=== PATIENT | male | born 1955 | race Caucasian/White ===

== ENCOUNTER 2016-10-02 16:53 | Emergency (ER) | payer OTHER ==
[2016-10-02] MEDS ORDERED: IOPAMIDOL 300 (61%) 100 ML VIAL IV ONE (16:54)
[2016-10-02] MEDS ORDERED: PANTOPRAZOLE SODIUM 40 MG VIAL IV ONE (17:45)
[2016-10-02] MEDS ORDERED: MORPHINE SULFATE 4 MG/ML SYRINGE ONE (17:46)
[2016-10-02] MEDS ORDERED: SODIUM CHLORIDE 0.9% 1,000 ML ONE (17:46)
[2016-10-02] MEDS ORDERED: ONDANSETRON 4 MG/2ML 2 ML VIAL ONE (17:46)
[2016-10-02 17:48] LABS: ABSOLUTE NEUTROPHIL COUNT 6.7 K/mm3 (1.8-7.7); BASO % 0.4 % (0.2-1.0); EOS % 0.1 % (0.9-2.9); HEMOGLOBIN 10.4 gm/l (14.0-18.0); IMM NEUT% 0.2 % (0-1); LYMPH % 12.6 % (15-45); MEAN CELL VOLUME 82.3 fl (80.0-94.0); MEAN CORPUSCULAR HEMOGLOBIN 26.7 pg (27.0-31.0); MEAN CORPUSCULAR HGB CONC 32.5 g/dl (33.0-37.0); MEAN PLATELET VOLUME 11.4 fl (7.4-10.4); MONO # 0.4 (0.0-0.8); MONO % 4.6 % (4-12); NEUT % 82.1 % (43-75); PLATELET COUNT 335 K/mm3 (130-400); RED CELL DISTRIBUTION WIDTH 14.5 % (11.5-14.5)
[2016-10-02] MEDS ORDERED: HYDROMORPHONE HCL 1 MG/ML SYRINGE ONE ×2 (17:57→18:51)
[2016-10-02 18:02] LABS: ALB/GLOB RATIO 1.5 (>1.0); ALBUMIN 4.4 gm/dL (3.5-5.7); ALT/SGPT 10 U/L (7-52); BLOOD UREA NITROGEN 14 mg/dL (7-25); BUN/CREATININE RATIO 18 (6-20); CALCIUM 9.6 mg/dL (8.6-10.3); GLOMERULAR FILTRATION RATE 99 mL/min (60-85)
--- NOTE | 2016-10-02 18:53 | CT ---
EXAMINATION: Contrast enhanced CT scan of the abdomen and pelvis. CLINICAL INDICATION: Abdominal pain nausea vomiting diarrhea since 09/30/2016. COMPARISON: None TECHNIQUE: Oral contrast: None Following uneventful administration of 100 mL of Isovue 300, intravenously axial images were acquired from just above the domes of the diaphragm to the iliac crest. A CT scan of the pelvis was also obtained from the iliac crest to the initial tuberosities. Stacked axial, sagittal, and coronal images were reviewed. Findings: Abdomen CT: (Contrast-enhanced): Minimal patchy basilar opacities are noted within the lingular distribution, right middle lobe and lateral basilar segment left lower lobe. No lobar consolidation or pleural effusion is identified. There is an axial hiatal hernia. Arch size is normal. The liver exhibits no discrete worrisome lesion. There is low attenuation closely approximating the falciform ligament. This is a benign finding most likely reflecting focal fatty infiltration. The gallbladder is within normal limits. There is no evidence of biliary obstruction. Calcifications are noted within the spleen compatible prior granulomatous process. No worrisome mass or enhancement is identified. The pancreas is normal in size and contours. No inflammatory stranding is identified. The pancreatic duct is unremarkable. The adrenals are unremarkable. Kidneys are without solid mass or hydronephrosis. There is no nephrolithiasis. There is an interpolar cyst in the right kidney approximating 2.7 cm in diameter. The abdominal aorta exhibits atherosclerotic plaquing with no aneurysmal dilatation. The stomach is unremarkable. The visualized segments of small and large bowel are within normal limits. The osseous structures exhibit no displaced fracture. No lytic or blastic lesions are identified. Pelvic CT: (Contrast -enhanced): Bladder is moderately distended. The distal ureters are not dilated. The bladder wall thickening or irregularity is appreciated. The prostate is normal in size. No adenopathy is identified. Atherosclerotic plaquing involves iliac vessels. There is no aneurysm. There is a possibility of mesenteric fat. No gross bowel abnormalities are identified. No gross pericecal inflammatory stranding is identified currently. There is no free fluid. Spondylosis changes lumbar spine are noted greatest at L4-5 and L5-S1. No osteolytic or blastic lesions are identified. The overlying soft tissues are unremarkable. IMPRESSION: 1. No evidence of acute inflammatory or obstructive process involving the abdomen and pelvis. 2. Minimal mesenteric fat. Please note underlying bowel wall thickening may not be delineated well on the study. No dilated loops of small or large bowel are identified. 3. Subtle patchy bibasilar infiltrates within the lingular distribution, lateral basilar segment of the left lower lobe and right middle lobe distributions. Findings may reflect changes of an atypical infection. No dense consolidation is identified. 4. Distended bladder. Findings raise a question of bladder outlet obstruction. 5. Spondylosis changes lumbar spine. The findings were uploaded to the electronic medical record for review at approximately 6:54 PM 10/02/2016
[2016-10-02 19:05] LABS: SPECIFIC GRAVITY 1.015 (1.001-1.030); URINE BILIRUBIN NEGATIVE (NEGATIVE); URINE BLOOD NEGATIVE (NEGATIVE); URINE GLUCOSE (UA) NEGATIVE (NEGATIVE); URINE LEUKOCYTE ESTERASE NEGATIVE (NEGATIVE); URINE NITRITE NEGATIVE (NEGATIVE); URINE PROTEIN NEGATIVE (NEGATIVE); URINE UROBILINOGEN NORMAL (0-1 mg/dl)
[2016-10-02 19:08] LABS: URINE APPEARANCE CLEAR; URINE COLOR YELLOW
[2016-10-02 19:24] LABS: AMPHETAMINES/METHAMPHETAMINES NEGATIVE (NEGATIVE); COCAINE NEGATIVE (NEGATIVE); METHADONE NEGATIVE (NEGATIVE)
[2016-10-02 19:25] LABS: MARIJUANA POSITIVE (NEGATIVE); OPIATES NEGATIVE (NEGATIVE); TRICYCLIC ANTIDEPRESSANTS NEGATIVE (NEGATIVE)
[2016-10-02] MEDS ORDERED: HYDROCODONE/ACETAMINOPHEN 5/325MG TABLET ONE (21:42)
--- NOTE | 2016-10-03 06:35 | US ---
EXAMINATION:SCROTUM CONTENTS CLINICAL INDICATION: Undescended right testicle. Now with nausea and vomiting abdominal pain. COMPARISON: Prior examination dated 05/27/2013 FINDINGS: RIGHT: Epididymis: 0.7 x 1.1 x 0.5 cm in size. There is a calcification measuring 8.2 x 4.6 x 6.1 mm. Testicle: Measures: 2.0 x 0.8 x 1.4 centimeters. Echotexture: Within normal limits Doppler flow:Normal Hydrocele:None Comment: The right testicle is undescended and within the inguinal canal. LEFT: Epididymis: 0.5 x 1.4 x 0.5 cm.. The inferior aspect of the epididymis near the tail there is a calcification measuring 3.1 x 1.9 mm. Testicle: Measures: 3.6 x 1.5 x 2.4 centimeters. Echotexture: Heterogeneous Doppler flow:Normal Hydrocele:None Comment: No discrete lesion is identified within the testicle. Epididymal head cyst internal prior study is not visible on this exam. IMPRESSION: 1. Undescended right testicle. No testicular mass is identified. Small calcific lesions are noted adjacent to the epidermis. This may reflect chronic inflammatory change. 2. Heterogeneous echogenicity the left testicle. Currently no focal nodule is identified. Findings may reflect orchitis. No hydrocele is detected. 3. Calculations adjacent to the left epididymis tail. This also may reflect postinflammatory change. Findings were communicated by [facility] to the emergency department at: 2050 hours 10/03/2016 yesterday
== END 2016-10-02 22:02 | disposition home or self-care (01) ==
LOC: ED 16:53
DX: R10.9 Unspecified abdominal pain (principal); R11.10 Vomiting, unspecified; K92.1 Melena
CPT/HCPCS: 83605; 82150; 85025; 82550; 82553; 80305; 80053; 80307; 85651; 81003; 84484; 74177; 86901; 86850 ×3; 76870; 96375 ×2; 96376; 99284 ×2; 96374; 96361; 93005; J1170 ×2; C9113; J2405; J7030; Q9967; A9270